=== PATIENT | female | born 1980 | race African-American/Black ===

== ENCOUNTER 2018-09-04 07:11 | Emergency (ER) | payer OTHER ==
[~2018-09-04] VITALS: Ht 167.6 cm; Wt 133.8 kg
[2018-09-04 07:35] LABS: URINE BILIRUBIN NEGATIVE (Negative); URINE BLOOD NEGATIVE (Negative); URINE CLARITY CLEAR; URINE COLOR YELLOW; URINE GLUCOSE-RANDOM* NEGATIVE (Negative); URINE KETONES NEGATIVE (Negative); URINE NITRITE-REFLEX NEGATIVE (Negative); URINE PROTEIN (DIPSTICK) NEGATIVE (Negative); URINE UROBILINOGEN 0.2 E.U./dl (0.2-1.0)
[2018-09-04 07:38] LABS: URINE LEUKOCYTES-REFLEX 2+ (Negative)
[2018-09-04 07:51] LABS: CASTS None Seen /LPF (None Seen); CRYSTALS None Seen /LPF (None Seen); SQUAMOUS >10 Many /LPF (0-3)
[2018-09-04 07:52] LABS: URINE RBC None Seen /HPF (0-2); URINE WBC-REFLEX 6-15 Few /HPF (0-5)
[2018-09-04] MEDS ORDERED: FLEXERIL PO (08:41)
[2018-09-04] MEDS ORDERED: SENNA-DOCUSATE1 EACH PO (08:41)
[2018-09-04] MEDS ORDERED: NORCO 5-325 TA1 EACH PO (08:41)
[2018-09-04 09:00] VITALS: BP 176/119
== END 2018-09-04 09:01 | disposition home or self-care (01) ==
LOC: ER 07:11
PROVIDERS: Emergency Medicine
DX: S39.012A Strain of muscle, fascia and tendon of lower back, initial encounter (principal); S29.012A Strain of muscle and tendon of back wall of thorax, initial encounter; X58.XXXA Exposure to other specified factors, initial encounter; Y93.89 Activity, other specified; Y92.89 Other specified places as the place of occurrence of the external cause; Y99.8 Other external cause status

== ENCOUNTER 2019-01-11 08:41 | Emergency (ER) | payer OTHER ==
[~2019-01-11] VITALS: Ht 167.6 cm; Wt 133.8 kg
[~2019-01-11 08:41] MED LIST: FLEXERIL PO; NORCO 5-325 TA1 EACH PO; SENNA-DOCUSATE1 EACH PO
[2019-01-11 09:01] LABS: URINE BILIRUBIN NEGATIVE (Negative); URINE BLOOD 3+ (Negative); URINE CLARITY CLEAR; URINE COLOR YELLOW; URINE GLUCOSE-RANDOM* NEGATIVE (Negative); URINE KETONES NEGATIVE (Negative); URINE LEUKOCYTES-REFLEX 1+ (Negative); URINE NITRITE-REFLEX NEGATIVE (Negative); URINE PROTEIN (DIPSTICK) NEGATIVE (Negative); URINE SPECIFIC GRAVITY 1.025 (1.005-1.035); URINE UROBILINOGEN 0.2 E.U./dl (0.2-1.0)
[2019-01-11 09:08] LABS: EOSINOPHILS 4.9 % (0.0-3.0); HEMATOCRIT 43.3 % (37.0-47.0); HEMOGLOBIN 15.3 gm/dL (12.0-15.0); LYMPHOCYTES 21.3 % (24.0-44.0); MCH 32.7 pg (26.0-34.0); MCHC 35.2 g/dL (28.0-37.0); MCV 92.8 fL (80.0-100.0); MONOCYTES 4.9 % (1.0-8.0); PLATELET COUNT 227 thou/uL (150-400); POLYS 67.9 % (36.0-66.0); RBC 4.67 mil/uL (4.20-5.00); RDW 13.1 % (10.5-14.5); WBC 8.9 thou/uL (4.0-11.0)
[2019-01-11] MEDS ORDERED: LEXAPRO 10 MG T10 M2 PO (09:12)
[2019-01-11] MEDS ORDERED: PROPRANOLOL 1010 MG PO (09:12)
[2019-01-11] MEDS ORDERED: SYNTHROID50 MCG PO (09:13)
[2019-01-11] MEDS ORDERED: ATIVAN0.5 MG PO (09:13)
[2019-01-11 09:15] LABS: SQUAMOUS >10 Many /LPF (0-3); URINE WBC-REFLEX 6-15 Few /HPF (0-5)
[2019-01-11 09:16] LABS: BACTERIA-REFLEX 1-9 Few /HPF (None Seen); CASTS None Seen /LPF (None Seen); CRYSTALS None Seen /LPF (None Seen); URINE RBC 0-2 Rare /HPF (0-2)
[2019-01-11 09:18] LABS: CALCIUM 9.4 mg/dL (8.5-10.1); CREATININE 0.8 mg/dL (0.6-1.0); POTASSIUM 4.3 mmol/L (3.5-5.1)
[2019-01-11 12:08] VITALS: BP 159/100
== END 2019-01-11 12:56 | disposition home or self-care (01) ==
LOC: ER 08:41
PROVIDERS: Emergency Medicine
DX: R19.5 Other fecal abnormalities (principal); R42 Dizziness and giddiness; I10 Essential (primary) hypertension; E03.9 Hypothyroidism, unspecified

== ENCOUNTER 2019-03-26 08:19 | Emergency (ER) | payer OTHER ==
[~2019-03-26] VITALS: Ht 172.7 cm; Wt 97.5 kg
[~2019-03-26 08:19] MED LIST changes: +ATIVAN0.5 MG PO; +LEXAPRO 10 MG T10 M2 PO; +PROPRANOLOL 1010 MG PO; +SYNTHROID50 MCG PO
--- NOTE | 2019-03-26 09:11 | EKG ---
[place] [address] [facility] [place] [address] ELECTROCARDIOGRAM REPORT Name: SOURAV FRANCOIS Room #: [facility]#: [id number] ������������������ Admission: ������������������ Attend Phys: Discharge: ������������������ Date of : 84 Report #: [id number] ����������������������������������������������������������������� [id number] THIS REPORT FOR: //name// [facility] ED Test Date: 2019-03-26 Test Time: 08:41:02 Pat Name: SOURAV FRANCOIS Department: Room: Gender: F [employer] Helper: ANNEMARIE : 1980 Requested By: Kobe Chavez Order Number: [id number] MD: Bryant Borrego Measurements Intervals [place] Rate: 70 P: 11 MD: 126 QRS: 12 QRSD: 98 T: 3 QT: 380 QTc: 410 Interpretive Statements Sinus rhythm Borderline low voltage, extremity leads No previous ECG available for comparison Electronically Signed On 03-26-2019 9:11:06 CDT by Bryant Borrego [email or web address] ��������������������������������������������� <ELECTRONICALLY SIGNED> ���������������������������������������� By: Bryant Borrego MD ��������������������������������������������� 03/26/19 0911 [id number] [id number] Bryant Borrego MD /PIA
[2019-03-26 09:26] LABS: ABSOLUTE NEUTROPHILS 4.8 thou/uL (1.4-8.2); BASOPHILS 1.2 % (0.0-2.0); EOSINOPHILS 6.1 % (0.0-3.0); HEMATOCRIT 42.8 % (37.0-47.0); HEMOGLOBIN 14.8 gm/dL (12.0-15.0); LYMPHOCYTES 30.2 % (24.0-44.0); MCH 32.4 pg (26.0-34.0); MCHC 34.5 g/dL (28.0-37.0); MCV 93.7 fL (80.0-100.0); MONOCYTES 5.1 % (1.0-8.0); PLATELET COUNT 226 thou/uL (150-400); POLYS 57.4 % (36.0-66.0); RBC 4.57 mil/uL (4.20-5.00); RDW 12.9 % (10.5-14.5); WBC 8.3 thou/uL (4.0-11.0)
[2019-03-26 10:03] LABS: ANION GAP 8 mmol/L (7-16); BUN 13 mg/dL (7-18); CALCIUM 8.8 mg/dL (8.5-10.1); CHLORIDE 105 mmol/L (98-107); CO2 28 mmol/L (21-32); CREATININE 0.8 mg/dL (0.6-1.0); GLUCOSE 99 mg/dL (74-106); SODIUM 141 mmol/L (136-145)
[2019-03-26] MEDS ORDERED: NAPROSYN500 MG PO (10:05)
[2019-03-26] MEDS ORDERED: ATIVAN1 MG PO (10:05)
[2019-03-26 10:08] LABS: ALBUMIN 3.4 g/dL (3.4-5.0); MAGNESIUM 1.9 mg/dL (1.8-2.4); SGOT 17 U/L (15-37); SGPT 23 U/L (30-65); TOTAL BILIRUBIN 0.2 mg/dL (<0.1-1.0); TOTAL PROTEIN 6.8 g/dL (6.4-8.2); TROPONIN-I <0.06 ng/mL (<0.06)
[2019-03-26 10:34] VITALS: BP 134/77
[2019-03-26 11:17] LABS: AMP/METHAMP Negative (Negative); BARBITURATES Negative (Negative); BENZODIAZEPINES Negative (Negative); COCAINE Negative (Negative); METHADONE Negative (Negative); OPIATES Negative (Negative); PCP Negative (Negative)
== END 2019-03-26 10:30 | disposition home or self-care (01) ==
LOC: ER 08:19
PROVIDERS: Emergency Medicine
DX: R07.89 Other chest pain (principal); F41.9 Anxiety disorder, unspecified

== ENCOUNTER 2019-08-06 09:03 | Emergency (ER) | payer OTHER ==
[~2019-08-06] VITALS: Ht 167.6 cm; Wt 133.8 kg
[~2019-08-06 09:03] MED LIST changes: +ATIVAN1 MG PO; +NAPROSYN500 MG PO
[2019-08-06] MEDS ORDERED: LEXAPRO20 MG PO (09:16)
[2019-08-06 10:36] LABS: ABSOLUTE NEUTROPHILS 4.8 thou/uL (1.4-8.2); BASOPHILS 1.2 % (0.0-2.0); EOSINOPHILS 6.2 % (0.0-3.0); HEMATOCRIT 41.6 % (37.0-47.0); HEMOGLOBIN 13.8 gm/dL (12.0-15.0); LYMPHOCYTES 28.4 % (24.0-44.0); MCH 32.2 pg (26.0-34.0); MCHC 33.2 g/dL (28.0-37.0); MCV 97.1 fL (80.0-100.0); MONOCYTES 4.5 % (1.0-8.0); PLATELET COUNT 217 thou/uL (150-400); POLYS 59.7 % (36.0-66.0); RBC 4.29 mil/uL (4.20-5.00); RDW 13.6 % (10.5-14.5); WBC 8.1 thou/uL (4.0-11.0)
[2019-08-06 10:44] LABS: CALCIUM 8.8 mg/dL (8.5-10.1); CREATININE 0.7 mg/dL (0.6-1.0); POTASSIUM 4.4 mmol/L (3.5-5.1)
[2019-08-06 10:50] LABS: ALBUMIN 3.4 g/dL (3.4-5.0); TOTAL BILIRUBIN 0.3 mg/dL (<0.1-1.0); TOTAL PROTEIN 6.9 g/dL (6.4-8.2)
[2019-08-06] MEDS ORDERED: REGLAN 10 MG TA10 MG PO (11:25)
[2019-08-06] MEDS ORDERED: NAPROSYN500 MG PO (11:25)
[2019-08-06 11:30] VITALS: BP 150/99
== END 2019-08-06 11:30 | disposition home or self-care (01) ==
LOC: ER 09:03
PROVIDERS: Emergency Medicine
DX: G43.909 Migraine, unspecified, not intractable, without status migrainosus (principal); I10 Essential (primary) hypertension; F41.9 Anxiety disorder, unspecified